=== PATIENT | female | born 1955 | race Caucasian/White ===

== ENCOUNTER 2016-10-08 08:01 | Day surgery (SDC) | payer OTHER ==
[~2016-10-08] VITALS: Ht 170.2 cm; Wt 83.9 kg
[~2016-10-08 08:01] MED LIST: ACET1TAB42 PO; CHOL200047 PO; HYDR25TA4 PO; OMEP20CA11 PO; POTA10TA12 PO; POTA20TA7 PO; PROM25TA14 PO; Sodium Chloride LOK Flush 10 mL Syringe IV PRN; fentaNYL-PF 50 mCg/mL 2 mL Inj IVPUSH PRN
[2016-10-08 08:41] VITALS: BP 132/87; PULSE 80; RESP 12; O2SAT 99
[2016-10-08] MEDS ORDERED: 0.9% Sodium Chloride 1,000 ML IV ONE (09:06)
[2016-10-08 09:14] VITALS: BP 102/74; PULSE 72; RESP 16; O2SAT 97
[2016-10-08 09:24] VITALS: BP 116/73; PULSE 74; RESP 16; O2SAT 93
--- NOTE | 2016-10-08 16:19 | ENDO ---
[address] [address] ENDOSCOPY PROCEDURE PATIENT: ARVIND ERIC : 1955 MR#: [id number] ADMIT: 10/08/2016 JOB ID: [id number] DATE: 10/08/2016 TYPE OF OPERATION: Esophagogastroduodenoscopy with biopsy. PREOPERATIVE DIAGNOSIS(ES): Abdominal pain. POSTOPERATIVE DIAGNOSIS(ES): Normal upper endoscopy, status post biopsy. ANESTHESIA: 1. Fentanyl 100 mcg. 2. Versed 5 mg IV administered. COMPLICATIONS: None. BLOOD LOSS: Minimal. DESCRIPTION OF PROCEDURE: After risks and benefits were explained to the patient, informed consent was obtained. After anesthesia administered, upper endoscope was then inserted into the mouth, intubated into the esophagus, stomach, second portion of duodenum, and the mucosa carefully examined. After the procedure was done, the scope was withdrawn and the procedure terminated. FINDINGS: Upon inspection of the esophagus, the esophagus was normal without masses, ulcers or lesions. Z-line located 40 cm from incisors. Upon entering the stomach, the stomach was normal without masses, ulcers, lesions. Retroflexion was normal. The duodenal bulb, first and second portion were normal. Biopsies taken of the antrum, body and distal esophagus. IMPRESSIONS: Normal upper endoscopy status post biopsy. RECOMMENDATION: 1. Await pathology results. 2. Followup with Hannah Zavala as an outpatient.
--- NOTE | 2016-10-12 13:08 | PATH ---
SURGICAL PATHOLOGY Attending Physician:Sascha Diaz MD CASE STATUS: Signed Out PATIENT NAME: ARVIND ERIC PID: [id number] : 1955 DATE COLLECTED:10/08/2016 16:20 SPECIMEN: 1: Stomach, Antrum, Biopsy 2: Gastric, Biopsy 3: Esophagus, Biopsy CLINICAL HISTORY: 1. ANTRUM BIOPSY 2. GASTRIC BX 3. DISTAL ESOPHAGUS BX FINAL DIAGNOSIS: 1.STOMACH, ANTRUM, BIOPSY: ANTRAL MUCOSA WITH REACTIVE GASTROPATHY. Negative for Helicobacter organisms. Negative for intestinal metaplasia. Negative for dysplasia and malignancy. 2.STOMACH, BIOPSIES: BODY-TYPE MUCOSA WITH NO DIAGNOSTIC ABNORMALITY. Negative for Helicobacter organisms. Negative for intestinal metaplasia. Negative for dysplasia and malignancy. 3.DISTAL ESOPHAGUS, BIOPSIES: SQUAMOUS EPITHELIUM WITH NO DIAGNOSTIC ABNORMALITY. Intraepithelial eosinophils are not increased. Negative for dysplasia and malignancy. ICD10 code R10.9 GROSS DESCRIPTION: The specimen is received in three formalin filled containers labeled with the patient's name. 1). The specimen is sublabeled "antrum" and consists of are 2 portions of tissue which aggregate to 0.3 x 0.3 x 0.2 CM. The specimen is entirely submitted in cassette 1A. 2). The specimen is sublabeled "gastric" and consists of 2 portions of tissue which aggregate to 0.4 x 0.3 x 0.2 CM. The specimen is entirely submitted in cassette 2A. 3). The specimen is labeled "distal esophagus" and consists of a 0.2 x 0.2 x 0.1 CM portion of tissue which is entirely submitted in cassette 3A. 10/08/2016 [facility] MICRO DESCRIPTION: See diagnosis. ICD-9 CODES: CPT CODES: 1: 69527 2: 16500 3: 69035 Electronically Signed Out Tana Zhou MD [facility] [address], [place] [address] Technical component performed at [facility], [address], [place], [address]
== END 2016-10-08 23:59 | disposition home or self-care (01) ==
LOC: END 08:01
PROVIDERS: ATTEND Internal Medicine Gastroenterology
DX: R10.11 Right upper quadrant pain (principal)
CPT/HCPCS: 43239; G0500; J2250; J3010; J7030